=== PATIENT | female | born 1990 | race Two or more races ===

== ENCOUNTER → 2023-09-05 08:50 | Outpatient (REF) | payer BC, SELFPAY | LOC: PNTC 08:50 | PROVIDERS: ATTENDING PHYSICIAN Obstetrics & Gynecology | DX: Z36.0 Encounter for antenatal screening for chromosomal anomalies (principal); Z36.82 Encounter for antenatal screening for nuchal translucency | CPT/HCPCS: 76801; 76813 ==

== ENCOUNTER 2024-03-08 19:50 | Inpatient (IN) | payer BC, SELFPAY ==
[2024-03-08 20:07] VITALS: BP 129/85; BMI 22.7
[2024-03-08] MEDS: LR 1000 IV ×2 (20:30→23:15)
[2024-03-08 20:49] LABS: % Basophils 0.3 % (0-2); % Eosinophils 0.8 % (0-6); % Immature Granulocytes 0.8 % (0-0.5); % Lymphocytes 20.4 % (20.5-51.1); % Monocytes 8.6 % (1.7-9.3); % Neutrophils 69.1 % (42.2-75.2); Absolute Eosinophils 0.1 10^3/uL (0-0.7); Absolute Immature Granulocytes 0.1 10^3/uL (0-0.05); Absolute Lymphocytes 2.7 10^3/uL (1.2-3.4); Absolute Monocytes 1.1 10^3/uL (0.1-0.6); Absolute Neutrophils 9.1 10^3/uL (1.4-6.5); Hematocrit 36.9 % (37.0-47.0); Hemoglobin 12.5 g/dL (12.0-16.0); Mean Corp Hgb Conc. 33.9 g/dL (33.0-37.0); Mean Corpuscular Volume 88.7 fL (81.0-99.0); Nucleated Red Blood Cells % 0 %; Platelet Count 191 10^3/uL (130-400); Red Blood Cell Count 4.16 10^6/uL (4.20-5.40); White Blood Cell Count 13.1 10^3/uL (4.8-10.8)
[2024-03-08 21:27] LABS: Amphetamines Negative (Negative); Barbiturates Negative (Negative); Benzodiazepines Negative (Negative); Buprenorphine Negative (Negative); Cocaine Negative (Negative); Marijuana Negative (Negative); Methadone Negative (Negative); Methamphetamines Negative (Negative); Opiates Negative (Negative); Phencyclidine Negative (Negative)
[2024-03-08 21:28] LABS: Tricyclic Antidepressants Negative (Negative)
[2024-03-08] MEDS: SUBLIMAZE 100 MCG EPIDURAL (23:07)
[2024-03-08] MEDS: FENTANYL/BUPIVACAINE 100 EPIDURAL (23:08)
[2024-03-09] MEDS: PITOCIN 30 UNITS/NSS 500 ML IV (04:30)
[2024-03-09] MEDS: PRENATAL PLUS 1 TABLET PO (08:47)
[2024-03-09] MEDS: SENOKOT-S 1 TABLET PO (08:47)
[2024-03-09] MEDS: MOTRIN 600 MG PO ×2 (13:04→19:07)
[2024-03-10] MEDS: MOTRIN 600 MG PO ×2 (01:11→08:19)
[2024-03-10 05:00] LABS: Hematocrit 35.8 % (37.0-47.0)
[2024-03-10] MEDS: SENOKOT-S 1 TABLET PO (08:19)
[2024-03-10] MEDS: PRENATAL PLUS 1 TABLET PO (08:19)
[2024-03-11 14:47] LABS: Syphilis/T. pallidum Ab Reflex Negative (Negative)
== END 2024-03-10 13:01 | disposition home or self-care (01) | DRG 807 ==
LOC: LDRP 19:50
PROVIDERS: ADMITTING PHYSICIAN Student in an Organized Health Care Education/Training Program; FAMILY PHYSICIAN Internal Medicine
PROC: 10E0XZZ Delivery of Products of Conception, External Approach (ICD-10-PCS; 2024-03-09)
PROC: 0HQ9XZZ Repair Perineum Skin, External Approach (ICD-10-PCS; 2024-03-09)
DX: O70.0 First degree perineal laceration during delivery (principal); Z37.0 Single live birth; Z3A.39 39 weeks gestation of pregnancy
CPT/HCPCS: 36415; 80306; 85014; 85018; 85025; 86780; 86850; 86900; 86901

== ENCOUNTER → 2025-01-14 15:05 | Outpatient (REF) | payer BC, SELFPAY | LOC: PNTC 15:05 | PROVIDERS: ATTENDING PHYSICIAN Student in an Organized Health Care Education/Training Program | DX: Z36.0 Encounter for antenatal screening for chromosomal anomalies (principal); Z36.82 Encounter for antenatal screening for nuchal translucency; G35 Multiple sclerosis; O35.5XX0 Maternal care for (suspected) damage to fetus by drugs, not applicable or unspecified | CPT/HCPCS: 76801; 76813 ==

== ENCOUNTER → 2025-02-03 13:45 | Outpatient (REF) | payer BC, SELFPAY | LOC: PNTC 13:45 | PROVIDERS: ATTENDING PHYSICIAN Student in an Organized Health Care Education/Training Program | DX: G35 Multiple sclerosis (principal); O35.5XX0 Maternal care for (suspected) damage to fetus by drugs, not applicable or unspecified; O99.352 Diseases of the nervous system complicating pregnancy, second trimester; Z36.3 Encounter for antenatal screening for malformations | CPT/HCPCS: 76805 ==